=== PATIENT | male | born 1980 | race Caucasian/White ===

== ENCOUNTER → 2017-08-21 | Outpatient (CLI) | payer OTHER ==
[~2017-08-21] MED LIST: NAPR500T2 PO
--- NOTE | 2017-08-22 14:04 | EKG ---
Date Performed: 08/21/2017 Time Performed: 12:28:28 PTAGE: 37 years EKG: Sinus rhythm . Normal ECG NO PREVIOUS TRACING DOCTOR: Kaitlyn Gilmore Interpretating Date/Time 08/22/2017 13:59:33
== END ==
LOC: HCAV 12:18
PROVIDERS: ATTEND Psychiatry & Neurology Child & Adolescent Psychiatry
DX: F31.60 Bipolar disorder, current episode mixed, unspecified (principal)
CPT/HCPCS: 93005

== ENCOUNTER 2017-08-25 21:13 | Emergency (ER) | payer OTHER ==
[2017-08-25] MEDS: KETOROLAC TROMETHAMINE 60 MG/2 ML (IM) VIAL IM (21:59)
== END 2017-08-25 22:37 | disposition home or self-care (01) ==
LOC: NEPD 22:37
DX: M25.561 Pain in right knee (principal); Z72.0 Tobacco use
CPT/HCPCS: 73564; 96372; 99283-25

== ENCOUNTER 2017-09-30 18:28 | Emergency (ER) | payer OTHER ==
[~2017-09-30] VITALS: Ht 167.6 cm; Wt 65.0 kg
[2017-09-30 18:51] VITALS: BP 119/70; PULSE 92; RESP 16; TEMP 98; O2SAT 98
[2017-10-01] MEDS ORDERED: DEPA125T PO (21:29)
[2017-10-01] MEDS ORDERED: SERO25TA PO (21:29)
[2017-10-01] MEDS ORDERED: DULO20 PO (21:29)
== END 2017-09-30 20:37 | disposition left against medical advice (07) ==
LOC: NED 18:28
DX: R29.90 Unspecified symptoms and signs involving the nervous system (principal)
CPT/HCPCS: 99281

== ENCOUNTER 2017-10-01 20:33 | Emergency (ER) | payer OTHER ==
[~2017-10-01] VITALS: Ht 167.6 cm; Wt 70.0 kg
[2017-10-01 21:29] VITALS: BP 123/82; PULSE 82; RESP 18; TEMP 98.4; O2SAT 100
[2017-10-01] MEDS ORDERED: DEPA125T PO (21:29)
[2017-10-01] MEDS ORDERED: DULO20 PO (21:29)
[2017-10-01] MEDS ORDERED: SERO25TA PO (21:29)
[2017-10-01] MEDS ORDERED: PROPARACAINE HCL 0.5% OPHT SOLN 15 ML BTL EACH EYE ONE (22:45)
--- NOTE | 2017-10-01 23:24 | PD ---
HPI Chief Complaint: Foreign Body Time Seen by Provider: 22:40 Travel History International Travel<30 days: No Contact w/Intl Traveler<30days: No Traveled to known affect area: No History of Present Illness HPI Patient 37-year-old male presents emergency department after having eye irritation since yesterday. 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 He states he was not grinding metal and not using a grinding wheel. He states he has had a foreign body sensation in his left eye ever since. He has had a little blurred vision which is actually gotten a lot does not wear glasses does not wear contacts. States symptoms are fairly mild, no pain just a foreign body sensation, context and duration as above. PFSH Past Medical History Medical History: Denies Significant Hx Diminished Hearing: No Immunizations Current: Yes Tetanus Vaccination: Unknown Influenza Vaccination: No Past Surgical History Oral Surgery: Yes Social History Alcohol Use: Yes Tobacco Use: Yes Substance Use: No Allergies-Medications (Allergen,Severity, Reaction): Coded Allergies: No Known Allergies (Unverified , 10/01/17) Reported Meds & Prescriptions Reported Meds & Active Scripts Active Reported Seroquel (Quetiapine Fumarate) 25 Mg Tab 25 Mg PO BID Depakote DR (Divalproex Sodium) 125 Mg Tabdr 125 Mg PO BID Cymbalta DR (Duloxetine HCl) 20 Mg Capdr 20 Mg PO DAILY Review of Systems Except as stated in HPI: all other systems reviewed are Neg Physical Exam Narrative GENERAL: Well-nourished, well-developed patient. SKIN: Focused skin assessment warm/dry. HEAD: Normocephalic. EYES: No scleral icterus. No injection or drainage. Pupils are equal round reactive to light and about 4 mm, patient does have a lesion on the left which states is baseline. He has difficulty with upward gaze and lateral gaze. Slit lamp examination with palpable lens with fluorescein staining does not show any uptake, no foreign body has been visualized, there is no scleral injection or icterus, there is no cell or flare NECK: Supple, trachea midline. No JVD or lymphadenopathy. CARDIOVASCULAR: Regular rate and rhythm without murmurs, gallops, or rubs. RESPIRATORY: Breath sounds equal bilaterally. No accessory muscle use. GASTROINTESTINAL: Abdomen soft, non-tender, nondistended. MUSCULOSKELETAL: No cyanosis, or edema. BACK: Nontender without obvious deformity. No CVA tenderness. Data Data Last Documented VS Vital Signs Date Time Temp Pulse Resp B/P (MAP) Pulse Ox O2 Delivery O2 Flow Rate FiO2 10/01/17 21:29 98.4 82 18 123/82 (96) 100 Orders Orders Proparacaine 0.5% Opth Soln (Alcaine 0.5 (10/01/17 22:45) Ed Discharge Order (10/01/17 23:24) [facility] Medical Decision Making Medical Screen Exam Complete: Yes Emergency Medical Condition: Yes Differential Diagnosis Foreign body sensation, conjunctivitis unlikely, open globe excluded clinically. Narrative Course Patient room to the emergency department, has reassuring slit-lamp exam, normal vision and equal pupils. There is no indication further workup this patient at this time. He is stable for discharge. Diagnosis Primary Impression: Sensation of foreign body in eye Disposition: 01 DISCHARGE HOME Condition: Stable Mehrdad Barahona MD Oct 01, 2017 23:24
== END 2017-10-02 00:07 | disposition home or self-care (01) ==
LOC: NEPD 20:33
DX: H57.8 Other specified disorders of eye and adnexa (principal); Z72.0 Tobacco use
CPT/HCPCS: 99283

== ENCOUNTER 2017-12-16 03:50 | Observation (INO) ==
[2017-12-16] MEDS ORDERED: Morphine Sulfate Inj 2 MG/ML Vial IV.PUSH PRN (04:28)
--- NOTE | 2017-12-16 04:28 | P.HPIM ---
History of Present Illness Primary Care Physician: UNKNOWN History of Present Illness: This is a 37-year-old male w/ no significant PMH who presented to the ER for re- admission for possible appendicitis. Pt had presented to ER earlier this evening for c/o LLQ abdominal pain x2 wks, CT Abd/Pelvis w/ concern for early appendicitis and pt offered admission, however was discharged so he could take his 16yr old daughter home, returns now for admission. Denies complaints at this time. Dr. Fitzgerald consulted by ER physician on previous visit. - Diagnosis (1) Appendicitis (2) Dehydration Inpatient Certification: I certify that the inpatient services were ordered in accordance with Medicare regulations governing the order. This includes certification that hospital inpatient services are reasonable and necessary and in the case of services not specified as inpatient-only under 42 CFR 419.22(n), that they are appropriately provided as inpatient services in accordance to with the 2-midnight benchmark under 43 CFR 412.3(e) Review of Systems PAST FAMILY HISTORY: Reviewed. No h/o DM or CAD All other systems reviewed negative except as stated [facility]PI [facility] - History History Provided By: Patient - Medical History Medical History: Medical History (Last Reviewed 12/16/17 @ 03:53 by Bri Kimball RN) Patient denies medical problems - Surgical History Surgical History: Surgical History (Last Reviewed 12/16/17 @ 03:53 by Bri Kimball RN) No history of previous surgery - Tobacco History Second Hand Smoke Exposure: No Tobacco Use In Past 30 Days: Yes Smoking Status: Current every day smoker Tobacco Type: Cigarettes - Alcohol History How Often Do You Have a Drink Containing Alcohol: 2 to 4 times a month - Substance Use History Substance History: No History of Abuse - Travel History Recent Travel in the [facility] Within the Last 8 Weeks: No Recent Travel Out of the Country Within the Last 8 Weeks: No - Immunization History Tetanus Immunization: Unsure Hx Influenza Vaccine This Season: No Medications and Allergies Allergies Allergy/AdvReac Type Severity Reaction Status Date / Time No Known Allergies Allergy Verified 12/16/17 03:51 Home Medications Medication Instructions Recorded Confirmed Type No Known Home Medications 12/15/17 12/16/17 History Exam Vital signs: Vital Signs 12/16/17 03:51 Temperature 97.1 F L Pulse Rate 70 Respiratory Rate 18 Blood Pressure 137/83 Pulse Oximetry 100 Intake & Output 0812/15/17 12/16/17 06:59 18:59 06:59 Weight 70 kg Narrative: PE: GENERAL: Young white male in no acute distress. HEENT: PERRLA, EOMI. No scleral icterus or conjunctival pallor. No lid lag or facial droop. CARDIOVASCULAR: Regular rate and rhythm. No obvious murmurs to auscultation. No chest tenderness to palpation. RESPIRATORY: No obvious rhonchi or wheezing. Clear to auscultation. Breath sounds equal bilaterally. GASTROINTESTINAL: Abdomen soft, generalized tenderness to palpation, left worse than right, nondistended. BS normal. MUSCULOSKELETAL: Extremities without clubbing, cyanosis, or edema. No obvious deformities. NEUROLOGICAL: Awake, alert and oriented x4. No focal neurologic deficits. Moving both upper and lower extremities spontaneously. Caprini VTE Risk Assessment Caprini VTE Risk Assessment: No/Low Risk (score <= 1) Caprini Risk Assessment Model: Point Value = 1 Point Value = 2 Point Value = 3 Point Value = 5 Age 41-60 Minor surgery BMI > 25 kg/m2 Swollen legs Varicose veins or History of unexplained or recurrent spontaneous Oral contraceptives or hormone replacement Sepsis (< 1 month) Serious lung disease, including pneumonia (< 1 month) Abnormal pulmonary function Acute myocardial infarction Congestive heart failure (< 1 month) History of inflammatory bowel disease Medical patient at bed rest Age 61-74 Arthroscopic surgery Major open surgery (> 45 min) Laparoscopic surgery (> 45 min) Malignancy Confined to bed (> 72 hours) Immobilizing plaster cast Central venous access Age >= 75 History of VTE Family history of VTE Factor V Leiden Prothrombin [id number] Lupus anticoagulant Anticardiolipin antibodies Elevated serum homocysteine Heparin-induced thrombocytopenia Other congenital or acquired thrombophilia Stroke (< 1 month) Elective arthroplasty Hip, pelvis, or leg fracture Acute spinal cord injury (< 1 month) Prophylaxis Regimen: Total Risk Factor Score Risk Level Prophylaxis Regimen 0-1 Low Early ambulation 2 Moderate Order ONE of the following: *Sequential Compression Device (SCD) *Heparin 5000 units SQ BID 3-4 Higher Order ONE of the following medications: *Heparin 5000 units SQ TID *Enoxaparin/Lovenox 40 mg SQ daily (WT < 150 kg, CrCl > 30 mL/min) *Enoxaparin/Lovenox 30 mg SQ daily (WT < 150 kg, CrCl > 10-29 mL/min) *Enoxaparin/Lovenox 30 mg SQ BID (WT < 150 kg, CrCl > 30 mL/min) AND/OR *Sequential Compression Device (SCD) 5 or more Highest Order ONE of the following medications: *Heparin 5000 units SQ TID (Preferred with Epidurals) *Enoxaparin/Lovenox 40 mg SQ daily (WT < 150 kg, CrCl > 30 mL/min) *Enoxaparin/Lovenox 30 mg SQ daily (WT < 150 kg, CrCl > 10-29 mL/min) *Enoxaparin/Lovenox 30 mg SQ BID (WT < 150 kg, CrCl > 30 mL/min) AND *Sequential Compression Device (SCD) Assessment and Plan - Assessment (1) Appendicitis Code(s): K37 - Unspecified appendicitis Status: Acute (2) Dehydration Code(s): E86.0 - Dehydration Status: Acute - Plan A/P: 1. Appendicitis: c/o abdominal pain x3 wks, seen in ER earlier this evening for similar complaints, returns now for re-admission, CT Abd/Pelvis w/ possible early or mild appendicitis, Dr. Fitzgerald consulted for further eval, NPO, IVF , Analgesics/antiemetics. 2. Dehydration: GFR 63, U/a negative for UTI, IVF for hydration, repeat labs in am, monitor I/O. 3. DVT Prophylaxis: SCD/Teds 4. Social work for d/c planning as needed 5. Case discussed w/ ER physician at length, labs/records/imaging reviewed by me.
[2017-12-16] MEDS ORDERED: Bisacodyl 10 MG Supp RECTAL PRN (04:29)
[2017-12-16] MEDS ORDERED: Acetaminophen 325 MG Tablet PO PRN (04:29)
--- NOTE | 2017-12-16 04:37 | ED ---
HPI General Chief complaint: Nausea/Vomiting/Diarrhea Stated complaint: admission Time Seen by Provider: 12/16/17 04:34 Source: patient Mode of arrival: ambulatory Limitations: no limitations History of Present Illness HPI narrative: 37-year-old male returns to the emergency department after signing out AGAINST MEDICAL ADVICE due to social issues that prevented him from staying for observation admission as previously planned. Patient was encouraged to return immediately once he had made arrangement. Patient returns at this time. No change in symptoms or presentation. Patient continues to have bilateral lower quadrant abdominal discomfort left greater than right. Patient was identified during earlier evaluation to have an abnormal CAT scan concerning for early appendicitis. Patient returns for further evaluation and assessment. Related Data Home Medications Medication Instructions Recorded Confirmed No Known Home Medications 12/15/17 12/16/17 Allergies Allergy/AdvReac Type Severity Reaction Status Date / Time No Known Allergies Allergy Verified 12/16/17 03:51 Review of Systems ROS: all other systems reviewed are negative PMFSH Medical History Medical History Patient denies medical problems (Acute) Surgical History Surgical History No history of previous surgery (Acute) Social History Social History Substance History: No History of Abuse Second Hand Smoke Exposure: No Smoking Status: Current every day smoker Tobacco Type: Cigarettes How Often Do You Have a Drink Containing Alcohol: 2 to 4 times a month Recent Travel in [facility] within the Last 8 Weeks: No Recent Out of Country Travel within the Last 8 Weeks: No Immunization History Tetanus Immunization: Unsure Hx Influenza Vaccine This Season: No Exam Narrative Exam Narrative: GENERAL: Well-nourished, well-developed patient. SKIN: Focused skin assessment warm/dry. HEAD: Normocephalic. EYES: No scleral icterus. No injection or drainage. NECK: Supple, trachea midline. No JVD or lymphadenopathy. CARDIOVASCULAR: Regular rate and rhythm without murmurs, gallops, or rubs. RESPIRATORY: Breath sounds equal bilaterally. No accessory muscle use. GASTROINTESTINAL: Abdomen soft, non-tender, nondistended. Right greater than left lower quadrant tenderness without guarding or rebound. MUSCULOSKELETAL: No cyanosis, or edema. BACK: Nontender without obvious deformity. No CVA tenderness. Course Initial Documented Vital Signs Temperature 97.1 F L 12/16/17 03:51 Pulse Rate 70 12/16/17 03:51 Respiratory Rate 18 12/16/17 03:51 Blood Pressure 137/83 12/16/17 03:51 Pulse Oximetry 100 12/16/17 03:51 Last Documented Vital Signs Temperature 97.1 F L 12/16/17 03:51 Pulse Rate 70 12/16/17 03:51 Respiratory Rate 18 12/16/17 03:51 Blood Pressure 137/83 12/16/17 03:51 Pulse Oximetry 100 12/16/17 03:51 Medical Decision Making MDM Narrative Medical decision making narrative: 37-year-old male was identified abnormal CT who had to leave AGAINST MEDICAL ADVICE to arrange for childcare returns as encouraged for further evaluation of lower abdominal pain with atypical presentation and abnormal CAT scan for possible early appendicitis. Patient's case already discussed with medicine Dr. Mayo aware of patient's return and will except patient for observation admission. No repeat diagnostics needed at this time. Medical Screen Exam Complete: Yes Emergency Medical Condition: Yes Discharge Plan Discharge Disposition Patient Disposition: 30 Still Patient Discharge Condition Condition: Stable Discharge Details Diagnosis: Abdominal pain, Abnormal abdominal CT scan Physicians Team ED Provider: Ursula Krueger Primary Care Provider: UNKNOWN, Rxs /Orders / Referrals /Forms Prescriptions: No Action No Known Home Medications RF: 0 Status ED Status: With Doctor
[2017-12-16] MEDS: Sod Chloride 0.9% Inj 1,000 ML IV.CONT SCH ×2 (06:24→15:47)
--- NOTE | 2017-12-16 11:19 | P.CONGI ---
History of Present Illness Consult date: 12/16/17 Chief complaint: abdominal pain r/o early appendicitis History of Present Illness: This is a 37-year-old male with out significant PMH who presented to the ER with complaints of Left sided abd pain for a couple of months. CT Abd/Pelvis w/ concern for early appendicitis. Dr. Fitzgerald saw him and didn't think it was appendicitis. GI consulted for further evaluation. Pt endorses a great amount of stress and he thinks this is a contributor. Endorses hx of this yrs ago for which he under went colonoscopy but nothing found. Endorses nausea but no vomiting, no melena or hematochezia. Pt is very frustrated, not getting any answers. <Jamin Cooper - Last Filed: 12/16/17 11:09> Review of Systems All other systems reviewed negative except as stated in HPI <Jamin Cooper - Last Filed: 12/16/17 11:09> PMFSH - History History Provided By: Patient - Medical History Medical History: Medical History (Last Reviewed 12/16/17 @ 04:35 by Ursula Krueger MD) Patient denies medical problems - Surgical History Surgical History: Surgical History (Last Reviewed 12/16/17 @ 04:35 by Ursula Krueger MD) No history of previous surgery - Tobacco History Second Hand Smoke Exposure: No Tobacco Use In Past 30 Days: Yes Smoking Status: Current every day smoker Tobacco Type: Cigarettes - Alcohol History How Often Do You Have a Drink Containing Alcohol: 2 to 4 times a month - Substance Use History Substance History: No History of Abuse - Travel History Recent Travel in the [facility] Within the Last 8 Weeks: No Recent Travel Out of the Country Within the Last 8 Weeks: No - Immunization History Tetanus Immunization: Unsure Hx Influenza Vaccine This Season: No <Jamin Cooper - Last Filed: 12/16/17 11:09> - Medical History Medical History: Medical History (Last Reviewed 12/16/17 @ 04:35 by Ursula Krueger MD) Patient denies medical problems - Surgical History Surgical History: Surgical History (Last Reviewed 12/16/17 @ 04:35 by Ursula Krueger MD) No history of previous surgery <Adam Sampson - Last Filed: 12/16/17 15:52> Medications and Allergies Active Medications: Active Medications Acetaminophen (Tylenol) 650 mg PO Q4H PRN PRN Reason: Temp > 100.4 Al Hydroxide/Mg Hydroxide (Milk Of Magnesia Liq) 30 ml PO Q12H PRN PRN Reason: Mild Constipation Bisacodyl (Dulcolax Supp) 10 mg RECTAL DAILY PRN PRN Reason: SEVERE CONSITIPATION Sodium Chloride (Ns Inj) 1,000 mls @ 100 mls/hr IV.CONT .Q10H [facility] Last Admin: 12/16/17 06:24 Dose: 100 mls/hr Lactulose (Lactulose Liq) 30 ml PO DAILY PRN PRN Reason: SEVERE CONSITIPATION Morphine Sulfate (Morphine Inj) 2 mg IV.PUSH Q4H PRN PRN Reason: PAIN 6-10 Ondansetron HCl (Zofran Inj) 4 mg IV.PUSH Q6H PRN PRN Reason: NAUSEA OR VOMITING Senna/Docusate Sodium (Nan-Colace) 1 tab PO BID [facility] Sennosides (Senokot) 17.2 mg PO Q12H PRN PRN Reason: Moderate Constipation Sodium Chloride (Ns Flush) 2 ml IV.FLUSH BID [facility] Sodium Chloride (Ns Flush) 2 ml IV.FLUSH PRN PRN PRN Reason: FLUSH AFTER USING IV ACCESS <Jamin Cooper - Last Filed: 12/16/17 11:09> Active Medications: Active Medications Acetaminophen (Tylenol) 650 mg PO Q4H PRN PRN Reason: Temp > 100.4 Al Hydroxide/Mg Hydroxide (Milk Of Magnesia Liq) 30 ml PO Q12H PRN PRN Reason: Mild Constipation Aspirin (Aspirin) 325 mg PO DAILY [facility] Bisacodyl (Dulcolax Supp) 10 mg RECTAL DAILY PRN PRN Reason: SEVERE CONSITIPATION Sodium Chloride (Ns Inj) 1,000 mls @ 100 mls/hr IV.CONT .Q10H [facility] Last Admin: 12/16/17 15:47 Dose: 100 mls/hr Lactulose (Lactulose Liq) 30 ml PO DAILY PRN PRN Reason: SEVERE CONSITIPATION Morphine Sulfate (Morphine Inj) 2 mg IV.PUSH Q4H PRN PRN Reason: PAIN 6-10 Nitroglycerin (Nitrostat Sl) 0.4 mg SL Q5M PRN PRN Reason: CHEST PAIN Ondansetron HCl (Zofran Inj) 4 mg IV.PUSH Q6H PRN PRN Reason: NAUSEA OR VOMITING Polyethylene Glycol/Electrolytes (Colyte Liq) 4,000 ml PO ONCE ONE Stop: 12/16/17 16:01 Last Admin: 12/16/17 15:47 Dose: 4,000 ml Senna/Docusate Sodium (Nan-Colace) 1 tab PO BID [facility] Last Admin: 12/16/17 15:18 Dose: 1 tab Sennosides (Senokot) 17.2 mg PO Q12H PRN PRN Reason: Moderate Constipation Sodium Chloride (Ns Flush) 2 ml IV.FLUSH BID [facility] Last Admin: 12/16/17 15:18 Dose: 2 ml Sodium Chloride (Ns Flush) 2 ml IV.FLUSH PRN PRN PRN Reason: FLUSH AFTER USING IV ACCESS <Adam Sampson - Last Filed: 12/16/17 15:52> Allergies Allergy/AdvReac Type Severity Reaction Status Date / Time No Known Allergies Allergy Verified 12/16/17 03:51 Home Medications Medication Instructions Recorded Confirmed Type No Known Home Medications 12/15/17 12/16/17 History Exam Vital signs: Vital Signs 12/16/17 03:51 12/16/17 06:27 12/16/17 07:17 Temperature 97.1 F L Pulse Rate 70 52 L Respiratory Rate 18 17 16 Blood Pressure 137/83 107/68 Pulse Oximetry 100 98 12/16/17 08:00 12/16/17 10:33 Temperature 97.7 F Pulse Rate 65 Respiratory Rate 12 18 Blood Pressure 107/73 Pulse Oximetry 99 Intake & Output 12/15/17 12/16/17 12/16/17 18:59 06:59 18:59 Weight 70 kg - Constitutional no acute distress - Routine HEENT Exam Head: Present: normocephalic ENT: Present: mucous membranes moist - Routine Respiratory Exam Present: CTA bilaterally - Routine Cardiovascular Exam Present: RRR - Routine Abdominal Exam Present: soft, normoactive bowel sounds, tenderness - Routine Extremities Exam Absent: edema - Routine Skin Exam Present: intact, dry - Routine Neurological Exam Present: alert, oriented X3 <Jamin Cooper - Last Filed: 12/16/17 11:09> Vital signs: Vital Signs 12/16/17 03:51 12/16/17 06:27 12/16/17 07:17 Temperature 97.1 F L Pulse Rate 70 52 L Respiratory Rate 18 17 16 Blood Pressure 137/83 107/68 Pulse Oximetry 100 98 12/16/17 08:00 12/16/17 10:33 12/16/17 12:00 Temperature 97.7 F 97.6 F Pulse Rate 65 59 L Respiratory Rate 12 18 12 Blood Pressure 107/73 120/84 Pulse Oximetry 99 100 Intake & Output 12/15/17 12/16/17 12/16/17 18:59 06:59 18:59 Intake Total 1000 / 1000 Balance 1000 / 1000 Weight 70 kg Intake: IV 1000 / 1000 NS Inj 1,000 ML @ 100 mls/hr IV 1000 / 1000 .CONT .Q10H [facility] Rx#:[id number] <Adam Sampson - Last Filed: 12/16/17 15:52> Results - Labs Labs: Laboratory Results - last 24 hr 12/16/17 12:52 Total Creatine Kinase 57 Troponin I Less than 0.02 L - Imaging Impressions Chest X-Ray 12/16/17 00:00 CONCLUSION: Negative for an acute process. <Adam Sampson - Last Filed: 12/16/17 15:52> Assessment and Plan - Plan - Left sided abd pain for a couple of weeks- complaints of Left sided abd pain for a couple of months. CT Abd/Pelvis w/ concern for early appendicitis. Dr. Fitzgerald saw him and didn't think it was appendicitis. GI consulted for further evaluation. Pt endorses a great amount of stress and he thinks this is a contributor. Endorses hx of this yrs ago for which he under went colonoscopy but nothing found. Endorses nausea but no vomiting, no melena or hematochezia. Pt is very frustrated, not getting any answers - ? appendicitis. Dr. Fitzgerald on the case Plan: - Clears - Colonoscopy in the am if pt is agreeing, not very keen to having this done - Golytely today - NPO mn - GS on the case - Supportive care - Pt seen and examined by Dr. Sampson and myself and this note is written on his behalf. 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 He states "we are not giving him the answers to his symptoms". He states he had a colonoscopy over ten years ago for similar symptoms and nothing was found at that time on his scopes. Discuused with Dr Che, will proceed with colonoscopy if does his prep. <Adam Sampson - Last Filed: 12/16/17 15:52>
--- NOTE | 2017-12-16 12:34 | P.PNIM ---
Subjective Interval history: This is a 37-year-old male w/ no significant PMH who presented to the ER for re- admission for possible appendicitis. Pt had presented to ER earlier this evening for c/o LLQ abdominal pain x2 wks, CT Abd/Pelvis w/ concern for early appendicitis and pt offered admission, however was discharged so he could take his 16yr old daughter home, returns now for admission. Denies complaints at this time. Dr. Fitzgerald consulted by ER physician on previous visit. 12-16 NOW STATES HAS CHEST PAIN GOING UP IN THE CHEST AND UP INTO LEFT SHOULDER AND DOWN HIS LEFT ARM WILL GET TROPONINS AND CE AND ORDER AN ECHO PATIENT MAY LEAVE AMA Has a 16-year-old daughter with psychiatric problems needs supervision Physical Exam Vital signs: Vital Signs 12/16/17 03:51 12/16/17 06:27 12/16/17 07:17 Temperature 97.1 F L Pulse Rate 70 52 L Respiratory Rate 18 17 16 Blood Pressure 137/83 107/68 Pulse Oximetry 100 98 12/16/17 08:00 12/16/17 10:33 Temperature 97.7 F Pulse Rate 65 Respiratory Rate 12 18 Blood Pressure 107/73 Pulse Oximetry 99 Intake & Output 12/15/17 12/16/17 12/16/17 18:59 06:59 18:59 Weight 70 kg Narrative: GENERAL: Awake alert and oriented 3 talkative and cooperative --does not appear to be in any major distress at the moment-appears quite anxious SKIN: Warm and dry. HEAD: Atraumatic. Normocephalic. EYES: Pupils equal and round. No scleral icterus. No injection or drainage. EOMI ENT: No nasal bleeding or discharge. Mucous membranes pink and moist. Tongue is midline NECK: Trachea midline. No JVD. Neck is supple CARDIOVASCULAR: Regular rate and rhythm. S1-S2 no S3 or S4 RESPIRATORY: No accessory muscle use. Clear to auscultation. Breath sounds equal bilaterally. GASTROINTESTINAL: Abdomen soft, non-tender, nondistended. Hepatic and splenic margins not palpable. MUSCULOSKELETAL: Extremities without clubbing, cyanosis, or edema. No obvious deformities. NEUROLOGICAL: Awake and alert. No obvious cranial nerve deficits. Motor grossly within normal limits. Five out of 5 muscle strength in the arms and legs. Normal speech. PSYCHIATRIC: Appropriate mood and affect; insight and judgment normal. Quite anxious at this time Assessment and Plan - Assessment (1) Appendicitis Code(s): K37 - Unspecified appendicitis Status: Acute (2) Dehydration Code(s): E86.0 - Dehydration Status: Acute - Plan 1. Appendicitis: c/o abdominal pain x3 wks, seen in ER earlier this evening for similar complaints, returns now for re-admission, CT Abd/Pelvis w/ possible early or mild appendicitis, Dr. Fitzgerald consulted for further eval, NPO, IVF , Analgesics/antiemetics. -Surgery does not feel that this is appendicitis Abdominal pain Seen by GI who wants to do a colonoscopy 2. Dehydration: GFR 63, U/a negative for UTI, IVF for hydration, repeat labs in am, monitor I/O. Chest pain-possibly stress-induced versus other We will trend troponins and cardiac enzymes And order an echocardiogram 3. DVT Prophylaxis: SCD/Teds Code Status: Full code Discussed Condition With: RN and patient Discharge Planning: PATIENT MAY GO AMA DUE TO ISSUES WITH DAUGHTER
--- NOTE | 2017-12-16 13:35 | XR ---
EXAM DATE: 12/16/2017 1:28 PM EDT AGE/SEX: 37 years / Male INDICATIONS: Chest pain. CLINICAL DATA: This is the patient's initial encounter. Patient reports that signs and symptoms have been present for 1 day and indicates a pain score of Nonresponsive. MEDICAL/SURGICAL HISTORY: . smoker None. COMPARISON: No prior exams available for comparison. FINDINGS: A single AP view of the chest demonstrates the lungs to be symmetrically aerated without evidence of mass, infiltrate or effusion. The cardiomediastinal contours are unremarkable. Osseous structures a re intact. CONCLUSION: Negative for an acute process. Electronically signed by: Danyel Porter MD 12/16/2017 1:34 PM EDT
[2017-12-16 13:36] LABS: Creatine Kinase 57 U/L (39-308)
[2017-12-16] MEDS: Senna/Docusate Sodium 8.6/50 MG Tablet PO SCH ×2 (15:18→22:31)
[2017-12-16] MEDS ORDERED: PEG 3350/E-Lyte Soln 4000 ML Bottle PO ONE (16:00)
[2017-12-16 20:37] LABS: Creatine Kinase 54 U/L (39-308)
--- NOTE | 2017-12-16 21:08 | MB ---
cc: Vinh Fitzgerald MD DATE: 12/16/2017 REQUESTING PHYSICIAN: Dr. Ursula Krueger REASON FOR CONSULTATION: Rule out appendicitis. HISTORY OF PRESENT ILLNESS: The patient is a 37-year-old male who presented to the emergency department with approximately 3 weeks of increasing left arm, flank, and leg pain. The patient states that he has been under a lot of stress lately and recently lost his job. He thinks the pain is mainly due to stress, but he got concerned as the pain was getting worse and did not have a reason for the pain. He was concerned about possible heart condition. The patient presented to the emergency department, underwent an evaluation including a CT scan of the abdomen and pelvis, which did show a subtle anatomic variation in the thickness of the appendix, which prompted radiology to read scan as unable to rule out on the scan. General Surgery was consulted to clinically rule out the patient for appendicitis. REVIEW OF SYSTEMS: A 12-point review of systems was conducted with the patient and is negative except for the pertinent positives mentioned above in history of present illness. PAST MEDICAL HISTORY: No chronic medical issues. PAST SURGICAL HISTORY: No previous abdominal operations. SOCIAL HISTORY: The patient denies alcohol, tobacco or illicit drug use other than does occasionally smoke cigarettes. The patient lives with his daughter. He is recently laid off. 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 ALLERGIES: NO KNOWN DRUG ALLERGIES. HOME MEDICATIONS: None. FAMILY HISTORY: Reviewed and noncontributory. PHYSICAL EXAMINATION: VITAL SIGNS: Temperature 97.7 degrees, pulse rate 62, blood pressure 107/73, O2 saturation 99%. GENERAL: The patient is a thin, male in no acute distress. HEENT: Head is normocephalic, atraumatic. Pupils are round and reactive to light. Sclerae are anicteric. Poor dentition. Oral cavity is clear. NECK: Supple. No JVD. No lymphadenopathy. LUNGS: Breath sounds present bilaterally and nonlabored breathing pattern. HEART: Regular rate and rhythm. PMI is nondisplaced. ABDOMEN: Soft and nontender to palpation. He has no tenderness over McBurney's point. Normal bowel sounds. No surgical scars. No hernias. Flank exam reveals some hypersensitivity, almost hyperesthesia to palpation of the left flank with no CVA tenderness. EXTREMITIES: No clubbing, cyanosis, or edema. SKIN: Warm, dry and intact without rash. NEUROLOGIC: The patient is alert and oriented x3. Depressed mood. Judgment, insight are intact. Cranial nerves II-XII are grossly intact. Nonfocal peripheral exam. LABORATORY DATA: White blood cell count is 10.7. CT scan of abdomen and pelvis essentially unremarkable. ASSESSMENT AND PLAN: The patient is a 37-year-old male with multiple social and somatic complaints. The patient does not have right lower quadrant pain. Clinically, the patient's history and physical exam are very inconsistent with appendicitis. I feel strongly the patient does not have acute appendicitis. I reviewed the CT scan and there is an area of the appendix that is slightly wider than the remaining portion, which could just be anatomic variation or maybe some retained stool or mucus, but no secondary signs of appendicitis. Thank you very much for this consultation. If the patient has any further need for surgery, please call. MD DINORA Benítez/alicia , 07:38 PM , 07:46 PM
[2017-12-17] MEDS: Sod Chloride 0.9% Inj 1,000 ML IV.CONT SCH ×2 (02:00→13:01)
[2017-12-17 06:27] LABS: Baso % (Auto) 0.4 % (0.0-2.0); Eos # (Auto) 0.3 th/mm3 (0.0-0.4); Eos % (Auto) 4.1 % (0.0-4.0); Hematocrit 45.3 % (39.0-51.0); Hemoglobin 15.7 gm/dL (13.0-17.0); Lymph # (Auto) 1.2 th/mm3 (1.0-4.8); Mean Corpuscular HGB Conc 34.7 % (32.0-36.0); Mean Corpuscular Hemoglobin 31.5 pg (27.0-34.0); Mean Corpuscular Volume 90.8 fL (80.0-100.0); Mean Platelet Volume 9.2 fL (7.0-11.0); Mono # (Auto) 0.4 th/mm3 (0.0-0.9); Mono % (Auto) 7.1 % (0.0-8.0); Neut # (Auto) 4.2 th/mm3 (1.8-7.7); Neut % (Auto) 68.4 % (16.0-70.0); Platelet Count 172 th/mm3 (150-450); Red Blood Count 4.99 mil/mm3 (4.50-5.90); Red Cell Distribution Width 13.6 % (11.6-17.2); White Blood Count 6.2 th/mm3 (4.0-11.0)
[2017-12-17 07:00] LABS: Albumin 3.7 g/dL (3.4-5.0); Anion Gap 10 meq/L (5-15); Aspartate Aminotransferase 14 U/L (15-37); Blood Urea Nitrogen 8 mg/dL (7-18); Calcium 8.3 mg/dL (8.5-10.1); Carbon Dioxide 23.4 meq/L (21.0-32.0); Chloride 109 meq/L (98-107); Cholesterol 136 mg/dL (120-200); Glomerular Filtration Rate 87 mL/min (>89); Glucose,Random 72 mg/dL (74-106); Magnesium 2.2 mg/dL (1.5-2.5); Potassium 3.9 meq/L (3.5-5.1); Sodium 142 meq/L (136-145)
[2017-12-17 07:05] LABS: Alanine Aminotransferase 13 U/L (12-78); Alkaline Phosphatase 77 U/L (45-117); Free T4 (Free Thyroxine) 1.26 ng/dL (0.76-1.46); HDL Cholesterol 43.8 mg/dL (40.0-60.0); LDL Cholesterol,Calculated 74 mg/dL (0-99); Phosphorus 3.2 mg/dL (2.5-4.9); Thyroid Stimulating Hormone 0.927 uIU/mL (0.358-3.740); Total Protein 6.8 g/dL (6.4-8.2); Triglycerides 93 mg/dL (42-150)
[2017-12-17 07:10] LABS: Creatine Kinase 50 U/L (39-308)
[2017-12-17] MEDS: Senna/Docusate Sodium 8.6/50 MG Tablet PO SCH (09:56)
[2017-12-17 12:21] LABS: Hemoglobin A1c 5.3 % (4.3-6.0)
[2017-12-17] MEDS ORDERED: Aspirin 325 MG Tablet PO SCH (13:30)
[2017-12-17] MEDS ORDERED: Dicyclomine 10 MG Capsule PO PRN (14:47)
--- NOTE | 2017-12-17 14:48 | P.PNIM ---
Subjective Interval history: This is a 37-year-old male w/ no significant PMH who presented to the ER for re- admission for possible appendicitis. Pt had presented to ER earlier this evening for c/o LLQ abdominal pain x2 wks, CT Abd/Pelvis w/ concern for early appendicitis and pt offered admission, however was discharged so he could take his 16yr old daughter home, returns now for admission. Denies complaints at this time. Dr. Fitzgerald consulted by ER physician on previous visit. 12-16 NOW STATES HAS CHEST PAIN GOING UP IN THE CHEST AND UP INTO LEFT SHOULDER AND DOWN HIS LEFT ARM WILL GET TROPONINS AND CE AND ORDER AN ECHO PATIENT MAY LEAVE AMA Has a 16-year-old daughter with psychiatric problems needs supervision 01-17 PATIENT HAD COLONOSCOPY WITH 2 POLYPS REMOVED NEEDS BENTYL 10MG PO TID PRN ABDOMINAL PAIN AT DC AWAIT ECHO TROPONINS ALL NEGATIVE HOPEFULLY DC IF ECHO IS STABLE Physical Exam Vital signs: Vital Signs 12/16/17 16:00 12/16/17 20:00 12/16/17 23:57 Temperature 97.4 F L 98.0 F Pulse Rate 59 L 56 L Respiratory Rate 14 21 16 Blood Pressure 136/83 126/75 Pulse Oximetry 100 100 12/17/17 08:00 12/17/17 13:35 Temperature 98.5 F Pulse Rate 78 57 L Respiratory Rate 16 20 Blood Pressure 121/82 124/76 Pulse Oximetry 97 Intake & Output 12/16/17 12/17/17 12/17/17 18:59 06:59 18:59 Intake Total 1000 / 1000 600 / 600 500 / 500 Balance 1000 / 1000 600 / 600 500 / 500 Intake: IV 1000 / 1000 600 / 600 500 / 500 NS Inj 1,000 ML @ 100 mls/hr IV 1000 / 1000 600 / 600 500 / 500 .CONT .Q10H [facility] Rx#:[id number] Other: Date of Last Bowel Movement 12/06/17 Narrative: GENERAL: Awake alert and oriented 3 talkative and cooperative --does not appear to be in any major distress at the moment-appears quite anxious SKIN: Warm and dry. HEAD: Atraumatic. Normocephalic. EYES: Pupils equal and round. No scleral icterus. No injection or drainage. EOMI ENT: No nasal bleeding or discharge. Mucous membranes pink and moist. Tongue is midline NECK: Trachea midline. No JVD. Neck is supple CARDIOVASCULAR: Regular rate and rhythm. S1-S2 no S3 or S4 RESPIRATORY: No accessory muscle use. Clear to auscultation. Breath sounds equal bilaterally. GASTROINTESTINAL: Abdomen soft, non-tender, nondistended. Hepatic and splenic margins not palpable. MUSCULOSKELETAL: Extremities without clubbing, cyanosis, or edema. No obvious deformities. NEUROLOGICAL: Awake and alert. No obvious cranial nerve deficits. Motor grossly within normal limits. Five out of 5 muscle strength in the arms and legs. Normal speech. PSYCHIATRIC: Appropriate mood and affect; insight and judgment normal. Quite anxious at this time Results - Labs CBC & Chem 7: 12/17/17 06:00 12/17/17 06:00 Laboratory Results - last 24 hr 12/16/17 12/17/17 12/17/17 19:50 06:00 06:00 WBC RBC Hgb Hct MCV MCH MCHC RDW Plt Count MPV Neut % (Auto) Lymph % (Auto) [place] % (Auto) Eos % (Auto) Baso % (Auto) Neut # (Auto) Lymph # (Auto) [place] # (Auto) Eos # (Auto) Baso # (Auto) WBC Differential Differential Comment Sodium 142 Potassium 3.9 Chloride 109 H Carbon Dioxide 23.4 Anion Gap 10 BUN 8 Creatinine 0.97 Estimated GFR 87 L Random Glucose 72 L Hemoglobin A1c 5.3 Calcium 8.3 L Phosphorus 3.2 Magnesium 2.2 Total Bilirubin 1.1 H AST 14 L ALT 13 Alkaline Phosphatase 77 Total Creatine Kinase 54 50 Troponin I Less than 0.02 L Less than 0.02 L Total Protein 6.8 D Albumin 3.7 D Triglycerides 93 Cholesterol 136 LDL Cholesterol, Calc 74 HDL Cholesterol 43.8 Cholesterol/HDL Ratio 3.10 TSH 0.927 Free T4 1.26 12/17/17 06:00 WBC 6.2 RBC 4.99 Hgb 15.7 Hct 45.3 MCV 90.8 MCH 31.5 MCHC 34.7 RDW 13.6 Plt Count 172 MPV 9.2 Neut % (Auto) 68.4 Lymph % (Auto) 20.0 [place] % (Auto) 7.1 Eos % (Auto) 4.1 H Baso % (Auto) 0.4 Neut # (Auto) 4.2 Lymph # (Auto) 1.2 [place] # (Auto) 0.4 Eos # (Auto) 0.3 Baso # (Auto) 0.0 WBC Differential . Differential Comment Auto diff final Sodium Potassium Chloride Carbon Dioxide Anion Gap BUN Creatinine Estimated GFR Random Glucose Hemoglobin A1c Calcium Phosphorus Magnesium Total Bilirubin AST ALT Alkaline Phosphatase Total Creatine Kinase Troponin I Total Protein Albumin Triglycerides Cholesterol LDL Cholesterol, Calc HDL Cholesterol Cholesterol/HDL Ratio TSH Free T4 Assessment and Plan - Assessment (1) Appendicitis Code(s): K37 - Unspecified appendicitis Status: Ruled-out (2) Dehydration Code(s): E86.0 - Dehydration Status: Resolved - Plan 1. Appendicitis: c/o abdominal pain x3 wks, seen in ER earlier this evening for similar complaints, returns now for re-admission, CT Abd/Pelvis w/ possible early or mild appendicitis, Dr. Fitzgerald consulted for further eval, NPO, IVF , Analgesics/antiemetics. -Surgery does not feel that this is appendicitis Abdominal pain Seen by GI who wants to do a colonoscopy HAD COLONOSCOPY WITH 2 POLYPS REMOVED AND HAS INTERNAL AND EXTERNAL HEMORRHOIDS , RECOMMENDED BENTYL 10MG PO TID 2. Dehydration: GFR 63, U/a negative for UTI, IVF for hydration, repeat labs in am, monitor I/O. Chest pain-possibly stress-induced versus other We will trend troponins and cardiac enzymes And order an echocardiogram TROPONINS NEGATIVE ECHO PENDING 3. DVT Prophylaxis: SCD/Teds Code Status: FULL CODE Discussed Condition With: RN AND PT AND CM Discharge Planning: AWAIT ECHO
--- NOTE | 2017-12-17 15:09 | P.DS ---
Date of admission: 12/16/17 04:10 Primary care physician: UNKNOWN Attending physician on discharge: Danyel Che Anticipated date of discharge: 12/17/17 Brief History from admission: This is a 37-year-old male w/ no significant PMH who presented to the ER for re- admission for possible appendicitis. Pt had presented to ER earlier this evening for c/o LLQ abdominal pain x2 wks, CT Abd/Pelvis w/ concern for early appendicitis and pt offered admission, however was discharged so he could take his 16yr old daughter home, returns now for admission. Denies complaints at this time. Dr. Fitzgerald consulted by ER physician on previous visit. DS: Diagnosis - Discharge Diagnosis (1) Appendicitis Status: Ruled-out (2) Dehydration Status: Resolved (3) Chest pain Status: Acute (4) Atypical chest pain Status: Acute (5) Abdominal pain Status: Acute DS: Medications - Discharge Medications Prescriptions: dicyclomine 10 mg PO TID PRN #90 cap PRN Reason: ABDOMINAL SPASMS psyllium husk [Metamucil] 2 scoop PO DAILY #1 can sennosides-docusate sodium [Senna Plus] 2 tab PO BID #120 tab DS: Summary Hospital Course: This is a 37-year-old male w/ no significant PMH who presented to the ER for re- admission for possible appendicitis. Pt had presented to ER earlier this evening for c/o LLQ abdominal pain x2 wks, CT Abd/Pelvis w/ concern for early appendicitis and pt offered admission, however was discharged so he could take his 16yr old daughter home, returns now for admission. Denies complaints at this time. Dr. Fitzgerald consulted by ER physician on previous visit. 12-16 NOW STATES HAS CHEST PAIN GOING UP IN THE CHEST AND UP INTO LEFT SHOULDER AND DOWN HIS LEFT ARM WILL GET TROPONINS AND CE AND ORDER AN ECHO PATIENT MAY LEAVE AMA Has a 16-year-old daughter with psychiatric problems needs supervision 01-17 PATIENT HAD COLONOSCOPY WITH 2 POLYPS REMOVED NEEDS BENTYL 10MG PO TID PRN ABDOMINAL PAIN AT DC AWAIT ECHO TROPONINS ALL NEGATIVE HOPEFULLY DC IF ECHO IS STABLE - Time Spent with Patient Total time spent providing and/or coordinating discharge services: Greater than 30 minutes - Quality: VTE Deep Vein Thrombosis/Pulmonary Embolism Present on Admission: No Exam Vital signs: Vital Signs 12/16/17 16:00 08/27/18 20:00 12/16/17 23:57 Temperature 97.4 F L 98.0 F Pulse Rate 59 L 56 L Respiratory Rate 14 21 16 Blood Pressure 136/83 126/75 Pulse Oximetry 100 100 12/17/17 08:00 12/17/17 13:35 Temperature 98.5 F Pulse Rate 78 57 L Respiratory Rate 16 20 Blood Pressure 121/82 124/76 Pulse Oximetry 97 Intake & Output 12/16/17 12/17/17 12/17/17 18:59 06:59 18:59 Intake Total 1000 / 1000 600 / 600 500 / 500 Balance 1000 / 1000 600 / 600 500 / 500 Intake: IV 1000 / 1000 600 / 600 500 / 500 NS Inj 1,000 ML @ 100 mls/hr IV 1000 / 1000 600 / 600 500 / 500 .CONT .Q10H [facility] Rx#:[id number] Other: Date of Last Bowel Movement 12/06/17 Narrative: GENERAL: Awake alert and oriented 3 talkative and cooperative --does not appear to be in any major distress at the moment-appears quite anxious SKIN: Warm and dry. HEAD: Atraumatic. Normocephalic. EYES: Pupils equal and round. No scleral icterus. No injection or drainage. EOMI ENT: No nasal bleeding or discharge. Mucous membranes pink and moist. Tongue is midline NECK: Trachea midline. No JVD. Neck is supple CARDIOVASCULAR: Regular rate and rhythm. S1-S2 no S3 or S4 RESPIRATORY: No accessory muscle use. Clear to auscultation. Breath sounds equal bilaterally. GASTROINTESTINAL: Abdomen soft, non-tender, nondistended. Hepatic and splenic margins not palpable. MUSCULOSKELETAL: Extremities without clubbing, cyanosis, or edema. No obvious deformities. NEUROLOGICAL: Awake and alert. No obvious cranial nerve deficits. Motor grossly within normal limits. Five out of 5 muscle strength in the arms and legs. Normal speech. PSYCHIATRIC: Appropriate mood and affect; insight and judgment normal. Quite anxious at this time Results Procedures completed during hospitalization: COLONOSCOPY INTERNAL AND EXTERNAL HEMORRHOIDS 2 POLYPS BIOPSIED Completed studies during hospitalization: Laboratory Results WBC 6.2 th/mm3 (4.0-11.0) 12/17/17 06:00 RBC 4.99 mil/mm3 (4.50-5.90) 12/17/17 06:00 Hgb 15.7 gm/dL (13.0-17.0) 12/17/17 06:00 Hct 45.3 % (39.0-51.0) 12/17/17 06:00 MCV 90.8 fL (80.0-100.0) 12/17/17 06:00 MCH 31.5 pg (27.0-34.0) 12/17/17 06:00 MCHC 34.7 % (32.0-36.0) 12/17/17 06:00 RDW 13.6 % (11.6-17.2) 12/17/17 06:00 Plt Count 172 th/mm3 (150-450) 12/17/17 06:00 MPV 9.2 fL (7.0-11.0) 12/17/17 06:00 Neut % (Auto) 68.4 % (16.0-70.0) 12/17/17 06:00 Lymph % (Auto) 20.0 % (9.0-44.0) 12/17/17 06:00 [place] % (Auto) 7.1 % (0.0-8.0) 12/17/17 06:00 Eos % (Auto) 4.1 % (0.0-4.0) H 12/17/17 06:00 Baso % (Auto) 0.4 % (0.0-2.0) 12/17/17 06:00 Neut # (Auto) 4.2 th/mm3 (1.8-7.7) 12/17/17 06:00 Lymph # (Auto) 1.2 th/mm3 (1.0-4.8) 12/17/17 06:00 [place] # (Auto) 0.4 th/mm3 (0.0-0.9) 12/17/17 06:00 Eos # (Auto) 0.3 th/mm3 (0.0-0.4) 12/17/17 06:00 Baso # (Auto) 0.0 th/mm3 (0.0-0.2) 12/17/17 06:00 WBC Differential . 12/17/17 06:00 Differential Comment Auto diff final 12/17/17 06:00 Sodium 142 meq/L (136-145) 12/17/17 06:00 Potassium 3.9 meq/L (3.5-5.1) 12/17/17 06:00 Chloride 109 meq/L (98-107) H 12/17/17 06:00 Carbon Dioxide 23.4 meq/L (21.0-32.0) 12/17/17 06:00 Anion Gap 10 meq/L (5-15) 12/17/17 06:00 BUN 8 mg/dL (7-18) 12/17/17 06:00 Creatinine 0.97 mg/dL (0.60-1.30) 12/17/17 06:00 Estimated GFR 87 mL/min (>89) L 12/17/17 06:00 Random Glucose 72 mg/dL (74-106) L 12/17/17 06:00 Hemoglobin A1c 5.3 % (4.3-6.0) 12/17/17 06:00 Calcium 8.3 mg/dL (8.5-10.1) L 12/17/17 06:00 Phosphorus 3.2 mg/dL (2.5-4.9) 12/17/17 06:00 Magnesium 2.2 mg/dL (1.5-2.5) 12/17/17 06:00 Total Bilirubin 1.1 mg/dL (0.2-1.0) H 12/17/17 06:00 AST 14 U/L (15-37) L 12/17/17 06:00 ALT 13 U/L (12-78) 12/17/17 06:00 Alkaline Phosphatase 77 U/L (45-117) 12/17/17 06:00 Total Creatine Kinase 50 U/L (39-308) 12/17/17 06:00 Troponin I Less than 0.02 ng/mL (0.02-0.05) L 12/17/17 06:00 Total Protein 6.8 g/dL (6.4-8.2) D 12/17/17 06:00 Albumin 3.7 g/dL (3.4-5.0) D 12/17/17 06:00 Triglycerides 93 mg/dL (42-150) 12/17/17 06:00 Cholesterol 136 mg/dL (120-200) 12/17/17 06:00 LDL Cholesterol, Calc 74 mg/dL (0-99) 12/17/17 06:00 HDL Cholesterol 43.8 mg/dL (40.0-60.0) 12/17/17 06:00 Cholesterol/HDL Ratio 3.10 Ratio 12/17/17 06:00 TSH 0.927 uIU/mL (0.358-3.740) 12/17/17 06:00 Free T4 1.26 ng/dL (0.76-1.46) 12/17/17 06:00 Impressions Chest X-Ray 12/16/17 00:00 CONCLUSION: Negative for an acute process. Labs on day of discharge: Labs from last 24 hours 12/17/17 12/17/17 12/17/17 06:00 06:00 06:00 WBC 6.2 RBC 4.99 Hgb 15.7 Hct 45.3 MCV 90.8 MCH 31.5 MCHC 34.7 RDW 13.6 Plt Count 172 MPV 9.2 Neut % (Auto) 68.4 Lymph % (Auto) 20.0 [place] % (Auto) 7.1 Eos % (Auto) 4.1 H Baso % (Auto) 0.4 Neut # (Auto) 4.2 Lymph # (Auto) 1.2 [place] # (Auto) 0.4 Eos # (Auto) 0.3 Baso # (Auto) 0.0 WBC Differential . Differential Comment Auto diff final Sodium 142 Potassium 3.9 Chloride 109 H Carbon Dioxide 23.4 Anion Gap 10 BUN 8 Creatinine 0.97 Estimated GFR 87 L Random Glucose 72 L Hemoglobin A1c 5.3 Calcium 8.3 L Phosphorus 3.2 Magnesium 2.2 Total Bilirubin 1.1 H AST 14 L ALT 13 Alkaline Phosphatase 77 Total Creatine Kinase 50 Troponin I Less than 0.02 L Total Protein 6.8 D Albumin 3.7 D Triglycerides 93 Cholesterol 136 LDL Cholesterol, Calc 74 HDL Cholesterol 43.8 Cholesterol/HDL Ratio 3.10 TSH 0.927 Free T4 1.26 12/16/17 19:50 WBC RBC Hgb Hct MCV MCH MCHC RDW Plt Count MPV Neut % (Auto) Lymph % (Auto) [place] % (Auto) Eos % (Auto) Baso % (Auto) Neut # (Auto) Lymph # (Auto) [place] # (Auto) Eos # (Auto) Baso # (Auto) WBC Differential Differential Comment Sodium Potassium Chloride Carbon Dioxide Anion Gap BUN Creatinine Estimated GFR Random Glucose Hemoglobin A1c Calcium Phosphorus Magnesium Total Bilirubin AST ALT Alkaline Phosphatase Total Creatine Kinase 54 Troponin I Less than 0.02 L Total Protein Albumin Triglycerides Cholesterol LDL Cholesterol, Calc HDL Cholesterol Cholesterol/HDL Ratio TSH Free T4 - Impressions ITS Impressions Chest X-Ray 12/16/17 00:00 CONCLUSION: Negative for an acute process. Discharge Plan - Discharge Disposition Patient Disposition: 01 Discharge Home - Discharge Condition Condition: Stable - Discharge Order Discharge Orders: Discharge Order (Routine); Ordered 12/17/17 Ordered By: Danyel Che - Discharge Details Anticipated Discharge Date: 12/17/17 Discharge Comment: DC TO HOME IF ECHO IS STABLE - Physicians Team Primary Care Provider: UNKNOWN, Attending Provider: Danyel Che Other Providers: Vinh Fitzgerald MD ; Adam Sampson MD
--- NOTE | 2017-12-17 15:11 | GIPROC ---
[facility] [address] [facility]. [facility] [place], [address] COLONOSCOPY PROCEDURE REPORT EXAM DATE: 12/17/2017 PATIENT NAME: Sd Haider MR #: [id number] BIRTHDATE: 1980 ENDOSCOPIST: Adam Sampson MD ORDER #: [id number] APPLICATION DEVELOPER MANAGER: Gabrielle Palmer and Kenyatta Marshall STATUS: inpatient INDICATIONS: The patient is a 37 yr old male here for a colonoscopy due to abdominal pain PROCEDURE PERFORMED: Colonoscopy with biopsy MEDICATIONS: Per Anesthesia and None. PREP QUALITY: poor PREP TYPE:GoLytely ESTIMATED BLOOD LOSS: None CONSENT: The patient understands the risks and benefits of the procedure and understands that these risks include, but are not limited to: sedation, allergic reaction, infection, perforation and/or bleeding. Alternative means of evaluation and treatment include, among others: physical exam, x-rays, and/or surgical intervention. The patient elects to proceed with this endoscopic procedure. medical equipment was checked for proper function. Hand hygiene and appropriate measures for infection prevention was taken. After the risks, benefits and alternatives of the procedure were thoroughly explained, Informed consent was verified, confirmed and timeout was successfully executed by the treatment team. A digital exam revealed external hemorrhoids The Pentax [id number] endoscope was introduced through the anus and advanced to the cecum, which was identified by both the appendix and ileocecal valve. The instrument was then slowly withdrawn as the colon was fully examined. COLON FINDINGS: A polypoid shaped flat polyp ranging between 3-5mm in size was found in the sigmoid colon. A biopsy was performed using cold forceps. A polypoid shaped flat polyp ranging between 3-5mm in size was found in the rectum. A biopsy was performed using cold forceps. Retroflexed views revealed internal hemorrhoids and Retroflexed views revealed small internal hemorrhoids The scope was then completely withdrawn from the patient and the procedure terminated. PROCEDURE WITHDRAWAL TIME:9minutes ADVERSE EVENTS: There were no complications. IMPRESSIONS: 1. A flat polyp ranging between 3-5mm in size was found in the sigmoid colon; biopsy was performed using cold forceps 2. A flat polyp ranging between 3-5mm in size was found in the rectum; biopsy was performed using cold forceps 3. Retroflexed views revealed internal hemorrhoids 4. Retroflexed views revealed small internal hemorrhoids 5. Revealed external hemorrhoids RECOMMENDATIONS: 1. Await biopsy results. Biopsy results will not be ready for 7-10 days. If you don't hear from us in two weeks, call our office for results. 2. Benefiber 2 tsp daily 3. Dicycolmine 10 mg pr tid ac RECALL: Return 1 year Colonoscopy Adam Sampson MD eSigned: Adam Sampson MD 12/17/2017 1:22 PM cc: PATIENT NAME: Sd Haider MR#: [id number]
[2017-12-17 16:13] VITALS: BP 117/86; PULSE 62; RESP 18; TEMP 97.5; O2SAT 100
--- NOTE | 2017-12-17 16:26 | ECG ---
Date Performed: 12/16/2017 Time Performed: 12:54:55 PTAGE: 37 years EKG: SINUS BRADYCARDIA Since the previous tracing, no significant change noted BORDERLINE ECG NO PREVIOUS TRACING DOCTOR: Abel Mckeon Interpretating Date/Time 12/17/2017 16:21:46
--- NOTE | 2017-12-17 16:27 | ECG ---
Date Performed: 12/17/2017 Time Performed: 02:10:28 PTAGE: 37 years EKG: SINUS BRADYCARDIA Since the previous tracing, no significant change noted BORDERLINE ECG PREVIOUS TRACING : 12/16/2017 22.36 DOCTOR: Abel Mckeon Interpretating Date/Time 12/17/2017 16:22:05
--- NOTE | 2017-12-17 16:27 | ECG ---
Date Performed: 12/16/2017 Time Performed: 22:36:47 PTAGE: 37 years EKG: SINUS BRADYCARDIA Since the previous tracing, no significant change noted BORDERLINE ECG PREVIOUS TRACING : 12/16/2017 12.54 DOCTOR: Abel Mckeon Interpretating Date/Time 12/17/2017 16:21:54
--- NOTE | 2017-12-17 17:16 | ECHRPT ---
Indication: Hypertensive heart disease CONCLUSIONS The left ventricular systolic function is normal with an estimated ejection fraction in the range of 60-65%. Left ventricular diastolic function parameters are normal. Trace mitral valve regurgitation. There is trace tricuspid valve regurgitation. BP: / HR: Rhythm: MEASUREMENTS (Male / Female) Normal Values Technical Quality: 2D ECHO LV Diastolic Diameter PLAX 4.1 cm 4.2 - 5.9 / 3.9 - 5.3 cm LV Systolic Diameter PLAX 2.6 cm IVS Diastolic Thickness 1.1 cm 0.6 - 1.0 / 0.6 - 0.9 cm LVPW Diastolic Thickness 1.1 cm 0.6 - 1.0 / 0.6 - 0.9 cm LV Relative Wall Thickness 0.5 LVOT Diameter 2.1 cm LA Systolic Diameter LX 3.0 cm 3.0 - 4.0 / 2.7 - 3.8 cm M-MODE AV Cusp Separation MM 2.2 cm DOPPLER AV Peak Velocity 139.0 cm/s AV Peak Gradient 7.7 mmHg LVOT Peak Velocity 132.0 cm/s LVOT Peak Gradient 7.0 mmHg AV Area Cont Eq pk 3.3 cm Mitral E Point Velocity 79.0 cm/s Mitral A Point Velocity 38.0 cm/s Mitral E to A Ratio 2.1 LV E' Lateral Velocity 13.5 cm/s Mitral E to LV E' Lateral Ratio 5.9 LV E' Septal Velocity 12.9 cm/s Mitral E to LV E' Septal Ratio 6.1 TR Peak Velocity 266.0 cm/s TR Peak Gradient 28.3 mmHg Right Atrial Pressure 10.0 mmHg Pulmonary Artery Systolic Pressu 38.3 mmHg Right Ventricular Systolic Press 38.3 mmHg PV Peak Velocity 111.0 cm/s PV Peak Gradient 4.9 mmHg FINDINGS LEFT VENTRICLE Normal left ventricular size. Wall thickness is normal. The left ventricular systolic function is normal with an estimated ejection fraction in the range of 60-65%. Left ventricular diastolic function parameters are normal. Wall thickness is measured at the upper limits of normal. RIGHT VENTRICLE Normal right ventricular size and systolic function. LEFT ATRIUM The left atrial size is normal. RIGHT ATRIUM The right atrial size is normal. ATRIAL SEPTUM Normal atrial septal thickness. AORTA The aortic root and proximal ascending aorta are normal in size on limited imaging. MITRAL VALVE Structurally normal mitral valve. No mitral valve stenosis. Trace mitral valve regurgitation. AORTIC VALVE Grossly normal. No aortic valve regurgitation. No aortic valve stenosis. TRICUSPID VALVE Structurally normal tricuspid valve. There is trace tricuspid valve regurgitation. The estimated pulmonary arterial pressure is 38 mmHg. PULMONARY VALVE No pulmonary valve regurgitation or stenosis. VESSELS The inferior vena cava is normal in size. PERICARDIUM No pericardial effusion. Paresh Stark DO (Electronically Signed) Final Date:17 December 2017 17:15
[2017-12-17] MEDS ORDERED: Lidocaine PF 1% Inj 5 ML Syringe INFILTRATN ONE (17:36)
== END 2017-12-17 17:37 | disposition home or self-care (01) ==
LOC: NEDA 03:50 → NEPC 03:50 → NEPGCP 07:39
PROVIDERS: ADMIT Hospitalist; ATTEND Hospitalist
PROC: COLONOS (2017-12-17 12:45)
DX: F17.210 Nicotine dependence, cigarettes, uncomplicated; K62.1 Rectal polyp; K63.5 Polyp of colon; R10.32 Left lower quadrant pain; K64.4 Residual hemorrhoidal skin tags; E86.0 Dehydration; K64.8 Other hemorrhoids; R79.1 Abnormal coagulation profile